=== PATIENT | male | born 1970 | race Two or more races ===

== ENCOUNTER 2019-09-02 14:08 | Emergency (ER) | payer OTHER ==
[2019-09-02 14:19] VITALS: BMI 27.1
--- NOTE | 2019-09-02 14:21 | PDOC ---
History of Present Illness - General Chief Complaint: Pain Stated Complaint: RT SIDE ABD PAIN Time Seen by Provider: 09/02/19 14:21 History Source: Patient Exam Limitations: No Limitations - History of Present Illness Initial Comments: 09/02/19 18:47 HPI: 48M PMH gastritis presenting w/ 1 week of on/off RUQ that acutely worsened for the past 2 days. Pt states pain is worse at nights but not associated w/ food intake. Radiation wrapping to the back. 2 days of constipation but is passing flatus. Denies F/C/N/V/PO intolerance/dysuria/frequency/testicular pain/ testicular swelling. No recent abx, no sick contacts, and no h/o abd surg. Pt states he had 2 beers 1 week ago. Past History - Past Medical History Allergies/Adverse Reactions: Allergies Allergy/AdvReac Type Severity Reaction Status Date / Time aspirin Allergy Verified 09/02/19 14:28 Home Medications: Ambulatory Orders Omeprazole 20 mg PO DAILY 09/02/19 COPD: No Hypercholesterolemia: No - Psycho Social/Smoking Cessation Hx Smoking History: Never smoked Review of Systems - Review of Systems Able to Perform ROS?: Yes Comments:: 09/02/19 18:47 ROS: CONSTITUTIONAL: Denies F / C RESP: Denies SOB CARD: Denies chest pain GI: ENDORSES abdominal pain and no BMx2d. Denies N / V / D, bloody stool, inability to tolerate PO : Denies dysuria, hematuria, frequency SKIN: Denies rashes Is the patient limited [place] proficient: No *Physical Exam - Vital Signs Last Vital Signs Temp Pulse Resp BP Pulse Ox 98.5 F 79 18 127/79 99 09/02/19 14:10 09/02/19 14:10 09/02/19 14:10 09/02/19 14:10 09/02/19 14:10 - Physical Exam Comments: 09/02/19 18:47 PE: GEN: Well appearing, NAD. AAOx3 HEENT: NC/AT. No facial asymmetry. Moist mucous membranes. Normal voice. Supple neck w/ FROM. CV: S1/S2, RRR, no m/r/g LUNG: CTAB, no wheezes, crackles, rales, rhonchi. GI: +RCVAT (mild). soft, ndnt, +BS, no guarding, no rebound. No masses. EXTREMITIES: No obvious deformities of all extremities. SKIN: warm, dry, normal turgor PSYCH: normal mood and affect NEURO: Moving all extremities well, ambulates well w/ normal gait. ED Treatment Course - LABORATORY CBC & Chemistry Diagram: 09/02/19 15:00 09/02/19 15:00 Medical Decision Making - Medical Decision Making 09/02/19 15:23 MDM: 48M c/o RUQ pain w/ radiation around to back. - CBC, CMP, lipase - RUQ / RNL US 09/02/19 15:39 labs reviewed, ua neg, slight hemolysis for K Elevated AST/ALT 09/02/19 16:28 patient reassessed feeling much better f/u US 09/02/19 16:52 US reports 1.9 cm right renal cyst and fatty infiltration of the liver. DC home w/ PCP f/u and return precautions Discharge - Discharge Information Problems reviewed: Yes Clinical Impression/Diagnosis: Abdominal pain Qualifiers: Abdominal location: right upper quadrant Qualified Code(s): R10.11 - Right upper quadrant pain Condition: Good Disposition: HOME - Admission No - Follow up/Referral - Patient Discharge Instructions Patient Printed Discharge Instructions: DI for Abdominal Pain-Adult Additional Instructions: You were seen and treated in the Emergency Department You may take tylenol for pain, as directed on bottle Follow up with your primary care doctor regarding your concerns and this ED visit in the next 3-4 days. Your liver enzymes were elevated - follow up with your primary care doctor regarding this. IMMEDIATELY RETURN TO THE ED IF YOU EXPERIENCE ANY OF THE FOLLOWING: - Worsening abdominal pain - Severe vomiting - Inability to pass stool or gas - High fever - Inability to eat or drink - ANYTHING that concerns you - Post Discharge Activity
--- NOTE | 2019-09-02 14:27 | PDOC ---
Attending Attestation - Resident Resident Name: Jarrell Mcintyre - HPI HPI: 09/02/19 16:10 Pt presents to the ED complaining of RUQ/epigastric pain for the last week. pain was moderate in severity, but became acutely worse today. Denies fever, nausea or vomiting, aggravating or alieviating factors. Denies prior history of similar pain. Denies urinary complaints. - Physicial Exam PE: 09/02/19 16:16 Agree with resident exam. Patient is alert and oriented and in no acute distress. Abdomen is soft, non tender and non distended. No CVA tenderness. - Medical Decision Making 09/02/19 16:21 Pt presents to the ED complaining of RUQ/epigastric pain. Differential includes billiary disease, pancreatitis, gastritis. Will check labs and RUQ US and reassess.
[2019-09-02] MEDS ORDERED: ACETAMINOPHEN 1000 MG/100 ML VIAL (NON FORMULARY) IVPB ONE (14:52)
[2019-09-02] MEDS ORDERED: ACETAMINOPHEN INJECTION 100 ML IVPB ONE (15:01)
[2019-09-02] MEDS ORDERED: FAMOTIDINE 20 MG/50 ML IVPB 20 MG/50 ML MG IVPB ONE ×2 (15:04→15:14)
[2019-09-02 15:06] LABS: BASO % 0.7 % (0-2.0); EOS % 2.4 % (0-4.5); HEMATOCRIT 43.6 % (35.4-49); HEMOGLOBIN 14.7 GM/dL (11.7-16.9); LYMPH % 31.9 % (8-40); MCH 29.5 pg (25.7-33.7); MCHC 33.8 g/dl (32.0-35.9); MEAN CELL VOLUME 87.2 fl (80-96); MEAN PLT VOLUME 8.8 fl (7.5-11.1); MONO % 6.7 % (3.8-10.2); NEUT % 58.3 % (42.8-82.8); PLATELET COUNT 220 K/MM3 (134-434); RDW 12.8 % (11.9-15.9); WHITE BLOOD COUNT 7.9 K/mm3 (4.0-10.0)
[2019-09-02 15:09] LABS: PH,URINE 5.5 (5.0-8.0); URINE APPEARANCE CLEAR; URINE BILIRUBIN NEGATIVE (NEGATIVE); URINE COLOR YELLOW; URINE GLUCOSE (UA) NEGATIVE (NEGATIVE); URINE KETONE NEGATIVE (NEGATIVE); URINE LEUK ESTERASE NEGATIVE (NEGATIVE); URINE NITRITE NEGATIVE (NEGATIVE); URINE PROTEIN NEGATIVE (NEGATIVE)
[2019-09-02 15:35] LABS: ALBUMIN 4.1 g/dl (3.4-5.0); BILIRUBIN,TOTAL 0.8 mg/dL (0.2-1); CREATININE 0.7 mg/dL (0.55-1.3); POTASSIUM 5.2 mmol/L (3.5-5.1); TOT PROT 8.2 g/dl (6.4-8.2)
[2019-09-02 17:13] VITALS: BP 116/79; PULSE 78; TEMP 98.3
== END 2019-09-02 17:13 | disposition home or self-care (01) ==
LOC: JER 14:08
PROC: 3E033GC Introduction of Other Therapeutic Substance into Peripheral Vein, Percutaneous Approach (ICD-10-PCS; principal; 2019-09-02)
PROC: 3E033GC Introduction of Other Therapeutic Substance into Peripheral Vein, Percutaneous Approach (ICD-10-PCS; 2019-09-02)
DX: R10.11 Right upper quadrant pain (principal); Z88.6 Allergy status to analgesic agent
CPT/HCPCS: 36415; 76705-TC; 80053; 81003; 85025; 87086; 99284-25; J0131

== ENCOUNTER 2021-04-21 04:47 | Day surgery (SDC) | payer OTHER ==
[2021-04-16 16:20] VITALS: BMI 27.1
[2021-04-21 10:31] VITALS: TEMP 97.7
[2021-04-21 11:19] VITALS: BP 118/73; PULSE 61
== END 2021-04-21 11:27 | disposition home or self-care (01) ==
LOC: JASU-ENDO 04:47
PROVIDERS: ATTEND Internal Medicine Gastroenterology
PROC: 0DBN8ZX Excision of Sigmoid Colon, Via Natural or Artificial Opening Endoscopic, Diagnostic (ICD-10-PCS; principal; 2021-04-21 10:00)
DX: Z12.11 Encounter for screening for malignant neoplasm of colon (principal); D12.5 Benign neoplasm of sigmoid colon; K64.8 Other hemorrhoids
CPT/HCPCS: 88305-TC

== ENCOUNTER 2021-04-28 04:35 | Day surgery (SDC) | payer OTHER ==
[2021-04-27 14:56] VITALS: BMI 28.1
[2021-04-28 12:29] VITALS: TEMP 97.5
[2021-04-28 13:14] VITALS: BP 115/68; PULSE 60
== END 2021-04-28 13:30 | disposition home or self-care (01) ==
LOC: JASU-ENDO 04:35
PROVIDERS: ATTEND Internal Medicine Gastroenterology
PROC: 0DB68ZX Excision of Stomach, Via Natural or Artificial Opening Endoscopic, Diagnostic (ICD-10-PCS; 2021-04-28)
PROC: 0DB98ZX Excision of Duodenum, Via Natural or Artificial Opening Endoscopic, Diagnostic (ICD-10-PCS; principal; 2021-04-28 11:45)
DX: K26.9 Duodenal ulcer, unspecified as acute or chronic, without hemorrhage or perforation (principal); K29.50 Unspecified chronic gastritis without bleeding
CPT/HCPCS: 88305-TC; 88342-TC

== ENCOUNTER 2021-07-07 04:35 | Day surgery (SDC) | payer OTHER ==
[2021-07-03 13:57] VITALS: BMI 31.0
[2021-07-07 10:43] VITALS: BP 111/79; PULSE 66; TEMP 97.1
== END 2021-07-07 11:10 | disposition home or self-care (01) ==
LOC: JASU-ENDO 04:35
PROVIDERS: ATTEND Internal Medicine Gastroenterology
PROC: 0DB78ZX Excision of Stomach, Pylorus, Via Natural or Artificial Opening Endoscopic, Diagnostic (ICD-10-PCS; principal; 2021-07-07 09:45)
DX: K29.50 Unspecified chronic gastritis without bleeding (principal); K31.89 Other diseases of stomach and duodenum; R19.00 Intra-abdominal and pelvic swelling, mass and lump, unspecified site
CPT/HCPCS: 88305-TC; 88342-TC

== ENCOUNTER 2023-05-15 07:32 | Inpatient (IN) | payer OTHER ==
[2023-05-15] MEDS ORDERED: ONDANSETRON 4 MG/2 ML VIAL IVPUSH ONE (07:42)
[2023-05-15] MEDS ORDERED: ONDANSETRON 4 MG/2 ML VIAL ONE (07:43)
[2023-05-15] MEDS ORDERED: ACETAMINOPHEN 1000 MG/100 ML BAG IVPB ONE (07:43)
[2023-05-15] MEDS ORDERED: LACTATED RINGERS SOLUTION 1000 ML INFUS.BAG IV ONE ×2 (07:44→08:44)
[2023-05-15] MEDS ORDERED: ACETAMINOPHEN INJECTION 100 ML IVPB ONE (07:59)
[2023-05-15 08:39] LABS: BASO % 0.5 % (0-2.0); EOS % 1.2 % (0-4.5); HEMATOCRIT 33.9 % (35.4-49); HEMOGLOBIN 11.3 GM/dL (11.7-16.9); LYMPH % 28.1 % (8-40); MCH 29.4 pg (25.7-33.7); MCHC 33.2 g/dl (32.0-35.9); MEAN CELL VOLUME 88.7 fl (80-96); MEAN PLT VOLUME 9.3 fl (7.5-11.1); MONO % 5.1 % (3.8-10.2); NEUT % 65.1 % (42.8-82.8); PLATELET COUNT 258 10^3/uL (134-434); RBC 3.82 M/mm3 (4.00-5.60); RDW 12.9 % (11.9-15.9); WHITE BLOOD COUNT 10.6 K/mm3 (4.0-10.0)
[2023-05-15 09:01] LABS: INR 1.17 (0.83-1.09); POTASSIUM 4.5 mmol/L (3.5-5.1); PROTHROMBIN TIME (PATIENT) 13.5 SEC (9.7-13.0)
[2023-05-15 09:03] LABS: ACTIVATED PTT 25.3 SECONDS (25.2-36.5); ALBUMIN 3.8 g/dl (3.4-5.0); BLOOD UREA NITROGEN 13.1 mg/dL (7-18); CALCIUM 9.4 mg/dL (8.5-10.1)
[2023-05-15 09:06] LABS: CREATININE 0.9 mg/dL (0.55-1.3)
[2023-05-15 09:08] LABS: BILIRUBIN,TOTAL 0.6 mg/dL (0.2-1); TOT PROT 7.3 g/dl (6.4-8.2)
[2023-05-15] MEDS ORDERED: MECLIZINE HCL 25 MG TABLET (FP) PO ONE (10:23)
[2023-05-15] MEDS ORDERED: MECLIZINE HCL 25 MG TABLET (FP) ONE (10:24)
[2023-05-15 10:51] LABS: LACTIC ACID 4.1 mmol/L (0.4-2.0)
[2023-05-15] MEDS: D5-1/2NS+20 MEQ KCL - 20 MEQ/1,000 ML INFUS.BAG IV SCH (13:22)
[2023-05-15 15:14] LABS: BASO % 0.3 % (0-2.0); EOS % 0.3 % (0-4.5); HEMATOCRIT 28.4 % (35.4-49); HEMOGLOBIN 9.5 GM/dL (11.7-16.9); LYMPH % 15.1 % (8-40); MCH 28.7 pg (25.7-33.7); MCHC 33.3 g/dl (32.0-35.9); MEAN CELL VOLUME 86.1 fl (80-96); MEAN PLT VOLUME 8.6 fl (7.5-11.1); MONO % 4.6 % (3.8-10.2); NEUT % 79.7 % (42.8-82.8); PLATELET COUNT 227 10^3/uL (134-434); RDW 13.1 % (11.9-15.9); WHITE BLOOD COUNT 11.7 K/mm3 (4.0-10.0)
[2023-05-15 17:56] VITALS: BMI 24.4
[2023-05-15] MEDS: FAMOTIDINE 20 MG PREMIXED IVPB IVPB SCH (22:47)
[2023-05-16] MEDS ORDERED: LACTATED RINGERS SOLUTION 1,000 ML/1,000 ML INFUS.BAG IV STA (03:18)
[2023-05-16] MEDS: D5-1/2NS+20 MEQ KCL - 20 MEQ/1,000 ML INFUS.BAG IV SCH ×3 (07:09→22:48)
[2023-05-16 08:59] LABS: BASO % 0.4 % (0-2.0); EOS % 2.4 % (0-4.5); HEMATOCRIT 26.7 % (35.4-49); HEMOGLOBIN 8.8 GM/dL (11.7-16.9); LYMPH % 25.5 % (8-40); MCH 29.3 pg (25.7-33.7); MCHC 32.9 g/dl (32.0-35.9); MEAN PLT VOLUME 9.2 fl (7.5-11.1); MONO % 7.7 % (3.8-10.2); PLATELET COUNT 206 10^3/uL (134-434); RDW 13.2 % (11.9-15.9); WHITE BLOOD COUNT 8.5 K/mm3 (4.0-10.0)
[2023-05-16 09:17] LABS: POTASSIUM 4.2 mmol/L (3.5-5.1)
[2023-05-16 09:19] LABS: CALCIUM 8.4 mg/dL (8.5-10.1)
[2023-05-16 09:20] LABS: ALBUMIN 3.1 g/dl (3.4-5.0); BLOOD UREA NITROGEN 7.6 mg/dL (7-18)
[2023-05-16 09:24] LABS: CREATININE 0.7 mg/dL (0.55-1.3)
[2023-05-16 09:25] LABS: BILIRUBIN,TOTAL 0.6 mg/dL (0.2-1); TOT PROT 5.9 g/dl (6.4-8.2)
[2023-05-16] MEDS: FAMOTIDINE 20 MG PREMIXED IVPB IVPB SCH ×2 (10:07→21:32)
[2023-05-16] MEDS: LIDOCAINE 5% TOPICAL PATCH TP SCH (15:30)
[2023-05-16] MEDS ORDERED: LIDOCAINE PATCH REMOVAL MC SCH (22:00)
[2023-05-16] MEDS ORDERED: ATORVASTATIN CA 10 MG TABLET (FP) PO SCH (22:00)
[2023-05-17 09:19] VITALS: RESP 20
[2023-05-17] MEDS: LIDOCAINE 5% TOPICAL PATCH TP SCH (09:19)
[2023-05-17] MEDS: FAMOTIDINE 20 MG PREMIXED IVPB IVPB SCH (09:19)
[2023-05-17 12:04] LABS: BASO % 0.5 % (0-2.0); EOS % 4.2 % (0-4.5); HEMATOCRIT 27.1 % (35.4-49); LYMPH % 27.4 % (8-40); MCH 29.6 pg (25.7-33.7); MCHC 33.3 g/dl (32.0-35.9); MEAN CELL VOLUME 88.7 fl (80-96); MONO % 5.5 % (3.8-10.2); NEUT % 62.4 % (42.8-82.8); PLATELET COUNT 211 10^3/uL (134-434); RBC 3.06 M/mm3 (4.00-5.60); RDW 13.6 % (11.9-15.9); WHITE BLOOD COUNT 6.5 K/mm3 (4.0-10.0)
[2023-05-17 12:25] LABS: POTASSIUM 4.1 mmol/L (3.5-5.1)
[2023-05-17 12:26] LABS: CALCIUM 8.7 mg/dL (8.5-10.1)
[2023-05-17 12:27] LABS: ALBUMIN 3.3 g/dl (3.4-5.0); MAGNESIUM 2.4 mg/dL (1.8-2.4)
[2023-05-17 12:30] LABS: CREATININE 0.8 mg/dL (0.55-1.3)
[2023-05-17 12:32] LABS: TOT PROT 6.6 g/dl (6.4-8.2)
[2023-05-17 12:34] LABS: BILIRUBIN,TOTAL 1.3 mg/dL (0.2-1)
[2023-05-17 12:50] LABS: BLOOD UREA NITROGEN 3.2 mg/dL (7-18)
[2023-05-17 15:28] VITALS: BP 109/66; PULSE 71; TEMP 98.1
== END 2023-05-17 18:00 | disposition home or self-care (01) | DRG 254 ==
LOC: JER 07:32 → JERBED 12:50 → J8W 15:50
PROVIDERS: ADMIT Internal Medicine; ATTEND Nurse Practitioner Family
PROC: 0DJD8ZZ Inspection of Lower Intestinal Tract, Via Natural or Artificial Opening Endoscopic (ICD-10-PCS; principal; 2023-05-16 11:00)
DX: K64.8 Other hemorrhoids (principal); K57.92 Diverticulitis of intestine, part unspecified, without perforation or abscess without bleeding; E78.00 Pure hypercholesterolemia, unspecified; R10.11 Right upper quadrant pain; K76.0 Fatty (change of) liver, not elsewhere classified
CPT/HCPCS: 36415; 71045-TC-FY; 74174-TC; 80053; 82272; 83605; 83690; 83735; 84484; 85025; 85610; 85730; 86850; 86900; 86901; 87040; 93005; 93010; 99285-25

== ENCOUNTER 2023-07-11 04:50 | Day surgery (SDC) | payer OTHER ==
[2023-07-07 12:16] VITALS: BMI 25.1
[2023-07-11 08:50] VITALS: TEMP 97.8
[2023-07-11 09:41] VITALS: PULSE 57
[2023-07-11 09:53] VITALS: BP 125/78; RESP 16
== END 2023-07-11 10:00 | disposition home or self-care (01) ==
LOC: JASU-ENDO 04:50
PROVIDERS: ATTEND Internal Medicine Gastroenterology
PROC: 0DB98ZX Excision of Duodenum, Via Natural or Artificial Opening Endoscopic, Diagnostic (ICD-10-PCS; 2023-07-11)
PROC: 0DB68ZX Excision of Stomach, Via Natural or Artificial Opening Endoscopic, Diagnostic (ICD-10-PCS; 2023-07-11)
PROC: 0DBP8ZX Excision of Rectum, Via Natural or Artificial Opening Endoscopic, Diagnostic (ICD-10-PCS; principal; 2023-07-11 08:00)
DX: K62.1 Rectal polyp (principal); D37.5 Neoplasm of uncertain behavior of rectum; K64.8 Other hemorrhoids; K57.30 Diverticulosis of large intestine without perforation or abscess without bleeding; K62.89 Other specified diseases of anus and rectum; K29.50 Unspecified chronic gastritis without bleeding; D64.9 Anemia, unspecified
CPT/HCPCS: 88305-TC; 88342-TC

== ENCOUNTER 2024-02-19 17:17 | Inpatient (IN) | payer OTHER ==
[2024-02-19 17:23] VITALS: BMI 27.1
[2024-02-19] MEDS ORDERED: ACETAMINOPHEN INJECTION 100 ML IVPB ONE (18:15)
[2024-02-19] MEDS ORDERED: ONDANSETRON 4 MG/2 ML VIAL ONE (18:15)
[2024-02-19] MEDS ORDERED: FAMOTIDINE 20 MG/50 ML IVPB 20 MG/50 ML MG IVPB ONE (18:15)
[2024-02-19] MEDS ORDERED: MAG HYDROX/AL HYDROX/SIMETH 30 ML UNIT-DOSE CUP ONE (18:15)
[2024-02-19] MEDS: ONDANSETRON 4 MG/2 ML VIAL IVPUSH ONE (18:41)
[2024-02-19] MEDS: ACETAMINOPHEN 1000 MG/100 ML BAG IVPB ONE (18:41)
[2024-02-19] MEDS: FAMOTIDINE 20 MG/50 ML IVPB 20 MG/50 ML MG IVPB ONE (18:41)
[2024-02-19] MEDS: MAG HYDROX/AL HYDROX/SIMETH 30 ML UNIT-DOSE CUP PO ONE (18:41)
[2024-02-19] MEDS: LACTATED RINGERS SOLUTION 1000 ML INFUS.BAG IV ONE ×2 (18:42→21:44)
[2024-02-19 18:55] LABS: BASO % 0.1 % (0-2.0); HEMATOCRIT 46.9 % (35.4-49); HEMOGLOBIN 16.3 GM/dL (11.7-16.9); LYMPH % 7.4 % (8-40); MCH 29.2 pg (25.7-33.7); MCHC 34.8 g/dl (32.0-35.9); MEAN CELL VOLUME 84.1 fl (80-96); MEAN PLT VOLUME 8.7 fl (7.5-11.1); MONO % 5.8 % (3.8-10.2); NEUT % 86.7 % (42.8-82.8); PLATELET COUNT 217 10^3/uL (134-434); RBC 5.58 M/mm3 (4.00-5.60); RDW 13.9 % (11.9-15.9); WHITE BLOOD COUNT 8.9 K/mm3 (4.0-10.0)
[2024-02-19 19:09] LABS: POTASSIUM 4.1 mmol/L (3.5-5.1)
[2024-02-19 19:11] LABS: BLOOD UREA NITROGEN 18.7 mg/dL (7-18); CALCIUM 9.5 mg/dL (8.5-10.1)
[2024-02-19 19:12] LABS: ALBUMIN 4.3 g/dl (3.4-5.0)
[2024-02-19 19:14] LABS: CREATININE 0.8 mg/dL (0.55-1.3)
[2024-02-19 19:16] LABS: BILIRUBIN,TOTAL 1.3 mg/dL (0.2-1); TOT PROT 8.9 g/dl (6.4-8.2)
[2024-02-19] MEDS ORDERED: KETOROLAC TROMETHAMINE 15 MG/ML VIAL ONE (20:06)
[2024-02-19] MEDS: KETOROLAC TROMETHAMINE 15 MG/ML VIAL IVPUSH ONE (20:10)
[2024-02-20] MEDS ORDERED: ONDANSETRON 4 MG/2 ML VIAL IVPUSH PRN (00:48)
[2024-02-20] MEDS ORDERED: ACETAMINOPHEN INJECTION 100 ML IVPB ONE (01:22)
[2024-02-20] MEDS: SODIUM CHLORIDE 1,000 ML IV SCH (01:25)
[2024-02-20] MEDS: ACETAMINOPHEN 1000 MG/100 ML BAG IVPB PRN ×2 (01:25→23:34)
[2024-02-20 06:28] LABS: BASO % 0.2 % (0-2.0); EOS % 0.3 % (0-4.5); HEMATOCRIT 41.4 % (35.4-49); HEMOGLOBIN 13.8 GM/dL (11.7-16.9); LYMPH % 17.1 % (8-40); MCH 28.8 pg (25.7-33.7); MCHC 33.3 g/dl (32.0-35.9); MEAN CELL VOLUME 86.3 fl (80-96); MEAN PLT VOLUME 8.9 fl (7.5-11.1); MONO % 10.1 % (3.8-10.2); NEUT % 72.3 % (42.8-82.8); PLATELET COUNT 181 10^3/uL (134-434); RDW 13.5 % (11.9-15.9); WHITE BLOOD COUNT 6.8 K/mm3 (4.0-10.0)
[2024-02-20 06:34] LABS: POTASSIUM 3.7 mmol/L (3.5-5.1)
[2024-02-20 06:37] LABS: CALCIUM 8.2 mg/dL (8.5-10.1)
[2024-02-20 06:38] LABS: BLOOD UREA NITROGEN 17.6 mg/dL (7-18)
[2024-02-20 06:41] LABS: CREATININE 0.9 mg/dL (0.55-1.3); PHOSPHOROUS 2.3 mg/dL (2.5-4.9)
[2024-02-20 06:42] LABS: BILIRUBIN,TOTAL 1.1 mg/dL (0.2-1)
[2024-02-20 06:53] LABS: ALBUMIN 3.4 g/dl (3.4-5.0)
[2024-02-20] MEDS: SODIUM PHOSPHATE - 15 MM in DEXTROSE 5%-WATER - 250 ML IVPB ONE (09:20)
[2024-02-20 14:14] VITALS: RESP 18
[2024-02-20] MEDS: POTASSIUM PHOSPHATE 20 MM in SODIUM CHLORIDE 250 ML IVPB ONE (14:54)
[2024-02-20] MEDS: KETOROLAC TROMETHAMINE 15 MG/ML VIAL IVPUSH PRN (20:55)
[2024-02-21] MEDS: FAMOTIDINE 20 MG/50 ML IVPB 20 MG/50 ML MG IVPB ONE (00:17)
[2024-02-21 08:38] LABS: HEMATOCRIT 39.1 % (35.4-49); HEMOGLOBIN 13.1 GM/dL (11.7-16.9); MCHC 33.5 g/dl (32.0-35.9); MEAN CELL VOLUME 86.6 fl (80-96); MEAN PLT VOLUME 8.3 fl (7.5-11.1); PLATELET COUNT 176 10^3/uL (134-434); RBC 4.51 M/mm3 (4.00-5.60); RDW 13.7 % (11.9-15.9); WHITE BLOOD COUNT 5.8 K/mm3 (4.0-10.0)
[2024-02-21] MEDS ORDERED: MAG HYDROX/AL HYDROX/SIMETH 30 ML UNIT-DOSE CUP PO PRN (08:38)
[2024-02-21] MEDS: PANTOPRAZOLE 40 MG TABLET PO SCH (09:26)
[2024-02-21 09:34] LABS: POTASSIUM 3.9 mmol/L (3.5-5.1)
[2024-02-21 09:35] LABS: BLOOD UREA NITROGEN 14.6 mg/dL (7-18); CREATININE 0.7 mg/dL (0.55-1.3); PHOSPHOROUS 2.7 mg/dL (2.5-4.9)
[2024-02-22 06:19] VITALS: BP 102/61; PULSE 59; TEMP 97.7
== END 2024-02-22 10:52 | disposition home or self-care (01) | DRG 247 ==
LOC: JER 17:17 → JERBED 21:28 → OBSVTOIN 23:51 → J5S 02-20 14:40
PROVIDERS: ADMIT Internal Medicine
DX: K56.699 Other intestinal obstruction unspecified as to partial versus complete obstruction (principal); E83.39 Other disorders of phosphorus metabolism; E78.5 Hyperlipidemia, unspecified
CPT/HCPCS: 0241U-QW; 36415; 71045-TC-FY; 74019-TC-FY; 74177-TC; 80048; 80053; 83690; 83735; 84100; 85025; 85027; 86850; 86900; 86901; 93005; 93010; 99285-25; G0378; J0131; Q9967